=== PATIENT | female | born 1950 | race Caucasian/White ===

== ENCOUNTER 2016-04-18 10:18 | Inpatient (IN) | payer MEDICARE, OTHER ==
--- NOTE | ~2016-04-18 | HP ---
History And Physical [address] [place]. [address] NAME: CLAUDIA SAUL : 46 STATUS : ADM IN [facility]#: [id number] AGE: 65 ADM/REG DATE : 04/18/16 MR#: [id number] REPORT SERV DATE: 04/19/16 DICTATED BY: EUGENE TRIPLETT DATE: 04/18/16 REPORT STATUS : Draft TRANSCRIBED BY: MODL DATE: 04/18/16 DATE OF ADMISSION: 04/18/2016 REASON FOR ADMISSION: Cirrhosis, status post TIPS procedure. HISTORY OF PRESENT ILLNESS: Ms Saul is a 65-year-old woman with multiple medical problems, most significantly nonalcoholic steatohepatitis with cirrhosis, recent pneumonias, who was recently seen in December by our Pulmonary Team for presentation of shortness of breath. She also has a very remote history of smoking which will be outlined below and has been started on bronchodilators. She has a history of esophageal varices, acid reflux, anxiety, and depression. She was brought in for a TIPS procedure and will be watched in the ICU following her TIPS procedure. PAST MEDICAL HISTORY: As noted above significant for cirrhosis, right lower effusion, previous pneumonia, esophageal varices, acid reflux, anxiety, depression, and a previous remote history of smoking. SOCIAL HISTORY: Significant for prior smoking. She had a 20-pack year history, but quit 35 years ago. No recent alcohol use or any illicit drug use. ALLERGIES: SHE HAS NO KNOWN DRUG ALLERGIES. FAMILY HISTORY: Significant for diabetes. REVIEW OF 10 SYSTEMS: Performed and is positive for what was noted above. PHYSICAL EXAMINATION: GENERAL: She is awake and alert, appearing tired, but in no acute respiratory distress. VITAL SIGNS: Stable. HEENT: Normocephalic and atraumatic. NECK: Supple. No lymphadenopathy. No JVD. CHEST: Symmetric with good expansion bilaterally. LUNGS: Clear to auscultation and percussion bilaterally. CARDIOVASCULAR: She has S1 and S2, which are regular rate and rhythm. ABDOMEN: Benign. EXTREMITIES: She has no edema, no clubbing, and no cyanosis. ASSESSMENT AND PLAN: 1. Status post transjugular intrahepatic portosystemic shunt procedure. Because of the high risk for morbidity and mortality, we have admitted her to intensive care unit which will be monitored. She is hemodynamically stable, so we have resumed most of her medications. But because of the procedure and the fact that she was n.p.o., we have discontinued her diuretics for the time being. a. She has a persistent cough, so we have restarted her home maintenance History And Physical [address] [address] NAME: CLAUDIA SAUL : 46 STATUS : ADM IN PAT#: [id number] AGE: 65 ADM/REG DATE : 04/18/16 MR#: [id number] REPORT SERV DATE: 04/19/16 DICTATED BY: EUGENE TRIPLETT DATE: 04/18/16 REPORT STATUS : Draft TRANSCRIBED BY: ELVIA DATE: 04/18/16 bronchodilators and placed her on bronchodilator protocol. It sounds clear with no wheezing and no crackles. b. Status post procedure as noted above. The patient will be monitored in the intensive care unit because of the high risk of morbidity and mortality. 2. Cirrhosis. Nonalcoholic steatohepatitis. The patient has no acute decompensation and will be monitored tonight. 3. Chronic dyspnea. The patient has a remote history of smoking and chronic dyspnea, but no clear label of chronic obstructive lung disease and does have a history of recurrent respiratory tract infections and effusions which may be related to her liver disease. She will remain on her bronchodilators. She has been started on SCDs and restarted her maintenance medications. Though obviously not on pharmacologic deep venous thrombosis prophylaxis, given her immediate procedure and the transjugular intrahepatic portosystemic shunt. Care was discussed with the patient and her family who was at the bedside. YOLANDA/ELVIA Eugene Triplett M.D. / [id number] CC: Desiere Molina MD
[~2016-04-18 10:18] MED LIST: ATV.5 PO; CONSTULOSE PO; EFFEXOR XR150 MG PO; I10 PO; KDUR10 PO; KLOR-CON 1010 MEQ PO; L20 PO; L40 PO; NEO500 PO; NORCO1 TA1 PO; SINEQUAN 75 MG75 MG PO; SINGULAIR1 PO; SPIRO25 PO; SPIRO50 PO; VITE PO; ZANAFLEX 4 MG TA4 MG PO
[2016-04-18 11:58] LABS: HEMATOCRIT 35.3 % (36.0-48.0); HEMOGLOBIN 11.6 g/dL (12.0-16.0)
[2016-04-18 11:59] LABS: PLATELET COUNT 95 10/3/uL (150-400)
[2016-04-18 12:06] LABS: BUN (BLOOD UREA NITROGEN) 11 MG/DL (6-23); CALCIUM, SERUM 8.6 MG/DL (8.5-10.4); CHLORIDE, SERUM 102 MMOL/L (96-112); CO2 (CARBON DIOXIDE) 28 MMOL/L (24-34); CREATININE 0.92 MG/DL (0.55-1.02); GFR AFRICAN AMERICAN 75 ML/MIN (>=60); GFR NON AFRICAN AMERICAN 64 ML/MIN (>=60); GLUCOSE, SERUM 125 MG/DL (60-99); SODIUM, SERUM 139 MMOL/L (135-148)
[2016-04-18 12:10] LABS: INTERNATIONAL NORMAL RATI 1.3 UNITS (-); PARTIAL THROMBO TIME 30.6 SEC (22.5-37.2); PROTIME (NOT ORD) 16.5 SEC (12.0-14.5)
[2016-04-18] MEDS ORDERED: ADVAIR250 INH (12:12)
[2016-04-18] MEDS ORDERED: ANOROELLIPTA INH (12:12)
[2016-04-18] MEDS ORDERED: ZOFRAN4 PO (12:21)
[2016-04-18] MEDS ORDERED: PRILO (12:21)
[2016-04-18] MEDS ORDERED: KLOR-CON M2020 MEQ PO (12:22)
[2016-04-19 05:38] LABS: A/G RATIO 0.6 (0.7-1.9); ALBUMIN 1.8 G/DL (3.5-5.0); ALKALINE PHOSPHATASE 169 U/L (45-117); BUN (BLOOD UREA NITROGEN) 11 MG/DL (6-23); CHLORIDE, SERUM 107 MMOL/L (96-112); CO2 (CARBON DIOXIDE) 24 MMOL/L (24-34); CREATININE 0.78 MG/DL (0.55-1.02); GFR AFRICAN AMERICAN 91 ML/MIN (>=60); GFR NON AFRICAN AMERICAN 79 ML/MIN (>=60); GLOBULIN 3.2 G/DL (2.5-4.1); GLUCOSE, SERUM 115 MG/DL (60-99); SGOT(AST) 73 U/L (5-40); SGPT(ALT) 35 U/L (5-65); SODIUM, SERUM 141 MMOL/L (135-148); TOTAL BILIRUBIN 1.5 MG/DL (0-1.2)
[2016-04-19] MEDS ORDERED: XIFAXAN550 MG PO (08:35)
[2016-04-19] MEDS ORDERED: PROAMAT5 PO (14:02)
[2016-04-20 04:38] LABS: BASOPHILS 0.2 %; BASOPHILS ABSOLUTE 0.01 10/3/uL (0.0-0.16); EOSINOPHILS 1.1 %; EOSINOPHILS ABSOLUTE 0.05 10/3/uL (0.0-0.53); HEMATOCRIT 29.5 % (36.0-48.0); HEMOGLOBIN 9.6 g/dL (12.0-16.0); IMMATURE GRANULOCYTES 0.2 %; IMMATURE GRANULOCYTES ABSOLUTE 0.01 10/3/uL (0.0-0.11); LYMPHOCYTES 21.4 %; LYMPHOCYTES ABSOLUTE 0.96 10/3/uL (0.67-4.30); MANUAL DIFF NO %; MEAN CORPUS HGB CONC 32.5 g/dL (32.0-36.0); MEAN CORPUSCULAR HEMOGLOB 31.8 pg (26.0-34.0); MEAN CORPUSCULAR VOLUME 97.7 fL (80-100); MEAN PLATELET VOLUME 9.9 fL (9.2-13.0); MONOCYTES 14.3 %; MONOCYTES ABSOLUTE 0.64 10/3/uL (0.21-1.20); NEUTROPHILS 62.8 %; NEUTROPHILS ABSOLUTE 2.82 10/3/uL (2.02-8.40); PLATELET COUNT 60 10/3/uL (150-400); RBC DISTRIBUTION WIDTH 17.1 % (12.0-16.0); RED CELL COUNT 3.02 10/6/uL (4.0-5.6); WHITE BLOOD CELLS 4.5 10/3/uL (4.5-10.5)
[2016-04-20 04:54] LABS: BUN (BLOOD UREA NITROGEN) 10 MG/DL (6-23); CHLORIDE, SERUM 106 MMOL/L (96-112); CO2 (CARBON DIOXIDE) 25 MMOL/L (24-34); CREATININE 0.95 MG/DL (0.55-1.02); GFR AFRICAN AMERICAN 72 ML/MIN (>=60); GFR NON AFRICAN AMERICAN 62 ML/MIN (>=60); PHOSPHORUS, SERUM 2.6 MG/DL (2.5-4.5); POTASSIUM, SERUM 3.8 MMOL/L (3.5-5.3); SODIUM, SERUM 139 MMOL/L (135-148)
[2016-04-20 04:59] LABS: GLUCOSE, SERUM 172 MG/DL (60-99)
[2016-04-20 05:01] LABS: ANISOCYTOSIS 1+ (5-10/OIF) (0-5/OIF); PLATELET ESTIMATE DEC (ADEQUATE)
== END 2016-04-20 07:25 | disposition home or self-care (01) | DRG 406 ==
LOC: IMGHOLD 10:18 → RADHOLD 11:14 → IMGHOLD 18:40 → MIC 18:41
PROVIDERS: Internal Medicine Hepatology; Internal Medicine Pulmonary Disease
PROC: 06183DY (ICD-10-PCS; principal; 2016-04-18)
DX: K74.60 Unspecified cirrhosis of liver (principal); J90 Pleural effusion, not elsewhere classified; K76.6 Portal hypertension; I27.2 Other secondary pulmonary hypertension; D69.59 Other secondary thrombocytopenia; K75.81 Nonalcoholic steatohepatitis (NASH); F32.9 Major depressive disorder, single episode, unspecified; Z87.891 Personal history of nicotine dependence; Z87.01 Personal history of pneumonia (recurrent); F41.9 Anxiety disorder, unspecified; Z83.3 Family history of diabetes mellitus; D73.1 Hypersplenism; I35.0 Nonrheumatic aortic (valve) stenosis
CPT/HCPCS: 37182; 80048; 80053; 82140; 83735; 84100; 85014; 85018; 85025; 85049; 85610; 85730; 87641; 93005; 93306; 93975; 94640; A9270-GY; C1725; C1757; C1768; C1769; C1876; J2250; J2370; J2405; J2710; J3010; Q9967